=== PATIENT | female | born 1955 ===

== ENCOUNTER 2023-03-11 11:20 | Outpatient (AMB) | payer MEDICARE, SELFPAY ==
--- NOTE | 2023-03-11 11:33 | A.OFFVIS_ITS ---
Intake Vital Signs 03/11/23 11:34 Height 5 ft 1 in Weight 123 lb 10.869 oz BMI 23.4 BP 148/70 H Blood Pressure Location Rt brachial Position Sitting Pulse 73 Pulse Source Pulse Oximeter Pulse Oximetry (%) 95 Intake Visit Reasons: Rheumatoid Factor Intake Note: * New pt presents today for consult. Referred by ENT to rule out SS * C/o dry eyes and mouth * States she's had OA for 30 years Refueling [place] Required: No Accompanied by: EX Spouse Allergies codeine [From Allerfrim with Codeine] Adverse Reaction (Unknown, Unverified 03/11/23 11:37) Unknown ketamine Adverse Reaction (Unknown, Unverified 03/11/23 11:37) Unknown pseudoephedrine [From Allerfrim with Codeine] Adverse Reaction (Unknown, Unverified 03/11/23 11:37) Unknown triprolidine [From Allerfrim with Codeine] Adverse Reaction (Unknown, Unverified 03/11/23 11:37) Unknown Medication List - Last Reconciled 03/11/23 by Yanni Ramírez MD atorvastatin 40 mg PO DAILY erenumab-aooe (Aimovig Autoinjector) mg subcut estradiol 10 mcg vaginal 2XW magnesium oxide 400 mg PO DAILY omeprazole 20 mg PO DAILY zolmitriptan 5 mg PO DAILY HPI HPI Comments History of Present Illness Details This is a 67-year-old female who is referred for evaluation of generalized osteoarthritis and sicca symptoms. 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 She had surgery for her right 1st CMC joint. [place] years ago. She continues to get flares of joint pain and swelling of her PIPs & DIPs. She uses various treatments for her hand OA including Voltaren gel, CBD oil, Tylenol and occasionally Aleve. For the last 1-2 years she has been having oral dryness. She drinks plenty of water, she has used Biotene mouthwash and Biotene toothpaste without significant relief. She denies any significant dry eyes. She was evaluated by ENT and had Sjogren's testing done which was negative. Patient denied history of recurrent dental caries. She denies dysphagia. She denies fever, weight loss, cough, shortness of breath. She is unaware of any family history of any autoimmune rheumatic disease. [facility] Medical History (Updated 03/11/23 @ 12:36 by Yanni Ramírez MD) Oral ulcer Osteoarthritis Xerostomia Surgical History History of ankle surgery Hx of section Family History Mother Hypertension Diabetes Sister Thyroid cancer Father Hearing loss Diabetes Social History Household Members: None Alcohol intake: never Patient Tobacco Use Status: Never used Tobacco Current occupation: retired nurse Female Reproductive History Menstrual Total pregnancies: 2 Review of Systems Const Denies fatigue and Denies weight loss Eyes Denies dry eyes ENT Reports dry mouth Card Denies dyspnea Resp Denies cough and Denies dyspnea Musc Reports deformity, Reports arthralgias and Reports joint swelling Endo Denies fatigue Physical Exam Vital Signs: Last Vital Signs Pulse 73 03/11/23 11:34 BP 148/70 H 03/11/23 11:34 Pulse Ox 95 03/11/23 11:34 BMI result Body Mass Index 23.4 Const General: cooperative, healthy appearing and comfortable Nutritional Appearance: average body habitus Orientation/consciousness: patient oriented x3 Limitations: no limitations HEENT Other: Mildly dry oral mucosa Head: Yes normocephalic and Yes atraumatic Resp Effort & Inspection: normal respiratory effort and able to speak in complete sentences Auscultation: clear to auscultation bilaterally Cardio Rate: regular rate Rhythm: regular rhythm GI Palpation (GI): Soft to palpation and nontender Neuro General: patient oriented x3 Extrem Other: Extensive osteoarthritic changes of both hands with prominent Heberden's and Carmella's nodes Left 5th PIP swelling and tenderness Few tender Heberden's nodes Results Reviewed Results Reviewed: Labs 2021 Anti SSA 0.9 (<1.0) RF negative Assessment & Plan Assessment & Plan (1) Xerostomia: Code(s): K11.7 - Disturbances of salivary secretion Plan: This is a 67-year-old female with bilateral hand osteoarthritis who presents for evaluation of dry mouth. Upon evaluation I do not see any signs of autoimmune rheumatic disease. She has had negative Sjogren's serology in the past. I explained that the only way to confirm or rule out Sjogren's at this point is a lip biopsy. Patient is not interested in that at this point. Patient has used various measures for dry mouth including Biotene mouthwash, Biotene toothpaste and others. I suggested Salagen trial. Discussed risks and benefits of Salagen. Will prescribe a Salagen trial. Medications: New pilocarpine HCl 5 mg PO TID PRN 30 tabs 1RF dryness Coding Level of Care Code New Pt Level 3 (20740) Diagnoses Xerostomia K11.7
[2023-03-11 11:34] VITALS: BP 148/70; PULSE 73; O2SAT 95; BMI 23.4
== END 2023-03-11 12:12 | disposition home or self-care (01) ==
PROVIDERS: Visit Provider Student in an Organized Health Care Education/Training Program
DX: K11.7 Disturbances of salivary secretion (principal)
CPT/HCPCS: 99203

== ENCOUNTER → 2023-03-11 11:20 | Outpatient (BNVA) | payer MEDICARE, SELFPAY | PROVIDERS: Visit Provider Student in an Organized Health Care Education/Training Program | DX: K11.7 Disturbances of salivary secretion (principal) | CPT/HCPCS: 99202 ==